=== PATIENT | male | born 1990 | race Caucasian/White ===

== ENCOUNTER 2019-01-17 17:19 | Emergency (ER) | payer OTHER ==
[~2019-01-17] VITALS: Ht 175.3 cm; Wt 100.0 kg
[2019-01-17] MEDS ORDERED: CORTISPORIN OTI10 M2 AS (17:56)
[2019-01-17 18:00] VITALS: BP 133/89
== END 2019-01-17 18:00 | disposition home or self-care (01) | DRG 156 ==
LOC: ED 17:19
PROC: 3E1B78Z Irrigation of Ear using Irrigating Substance, Via Natural or Artificial Opening (ICD-10-PCS; principal; 2019-01-17)
DX: H61.22 Impacted cerumen, left ear (principal)

== ENCOUNTER 2019-01-21 12:43 | Emergency (ER) | payer OTHER ==
[~2019-01-21] VITALS: Ht 175.3 cm; Wt 93.0 kg
[~2019-01-21 12:43] MED LIST: CORTISPORIN OTI10 M2 AS
[2019-01-21] MEDS ORDERED: AMOXICILLIN500 M2 PO (13:36)
[2019-01-21 13:53] VITALS: BP 132/81
== END 2019-01-21 13:53 | disposition home or self-care (01) | DRG 153 ==
LOC: ED 12:43
PROC: 3E1B78Z Irrigation of Ear using Irrigating Substance, Via Natural or Artificial Opening (ICD-10-PCS; principal; 2019-01-21)
DX: H66.92 Otitis media, unspecified, left ear (principal); H60.92 Unspecified otitis externa, left ear; H92.02 Otalgia, left ear